=== PATIENT | male | born 1970 | race Caucasian/White ===

== ENCOUNTER 2016-08-23 09:47 | Emergency (ER) | payer BC ==
[~2016-08-23] VITALS: Ht 170.2 cm; Wt 108.8 kg
[2016-08-23 10:20] LABS: HEMATOCRIT 42.2 % (38.0-50.0); MCH 28.5 PG (29.0-34.0); MCHC 33.2 G/DL (30.0-36.0); MCV 85.9 FL (86-99); MEAN PLAT.VOLUME 9.5 uM^3 (9.0-12.4); PLATELET COUNT 278 K/uL (156-360); RBC DIS.WIDTH-CV 12.9 % (11.8-14.6); RBC DIS.WIDTH-SD 39.8 % (39-53); RED BLOOD COUNT 4.91 M/uL (4.00-5.50); WHITE BLOOD COUNT 9.6 K/uL (4.1-10.2)
[2016-08-23 10:29] LABS: ADD MIUA? YES; BILIRUBIN NEGATIVE; BLOOD LARGE; COLOR YELLOW ((YELLOW)); GLUCOSE (STRIP) NEGATIVE; KETONES NEGATIVE; LEUKOCYTES NEGATIVE; NITRITE NEGATIVE; PROTEIN (STRIP) NEGATIVE; SPECIFIC GRAVITY 1.033 (1.000-1.030); UROBILINOGEN 0.2 MG/DL (0.2-1.0)
[2016-08-23 10:35] LABS: CHLORIDE 109 mEq/L (99-109); POTASSIUM 4.4 mEq/L (3.7-5.4); SODIUM 142 mEq/L (136-147)
[2016-08-23 10:37] LABS: GLUCOSE 93 mg/dL (70-99)
[2016-08-23 10:38] LABS: ANION GAP 6 MEQ/L (2-14)
[2016-08-23 10:41] LABS: GFR ESTIMATE (CALCULATED) > 59 mL/min/
[2016-08-23 10:42] LABS: UREA NITROGEN (BUN) 19 mg/dL (9-23)
[2016-08-23 10:42] LABS: BACTERIA NONE SEEN /HPF; EPITHELIAL CELLS RARE /HPF; MUCUS NONE SEEN /LPF; RED BLOOD CELLS TNTC /HPF (0-5); UCUL ADDED? NO
[2016-08-23] MEDS ORDERED: PERCOCET 5/31 TABLET PO (12:08)
[2016-08-23] MEDS ORDERED: ZOFRAN ODT4 MG PO (12:36)
[2016-08-23 12:42] VITALS: BP 114/81
== END 2016-08-23 12:43 | disposition home or self-care (01) ==
LOC: EME 09:47
PROVIDERS: Emergency Medicine
DX: N13.2 Hydronephrosis with renal and ureteral calculous obstruction (principal); Z87.442 Personal history of urinary calculi; I10 Essential (primary) hypertension
CPT/HCPCS: 74000; 80048; 81003; 85027; 99281; 99285; J1885; J2270; J2405; J7030